=== PATIENT | female | born 1950 | race American Indian/Alaskan Native ===

== ENCOUNTER 2016-12-13 05:52 | Day surgery (SDC) | payer MEDICARE ==
[2016-12-13] MEDS ORDERED: DIPRIVAN 10 MG/ML IV ONE ×2 (07:17→07:18)
--- NOTE | 2016-12-13 07:26 | Anesthesia Day of Surgery ---
Anesthesia Day of Surgery - Day of Surgery Patient Examined: Yes Patient H&P Reviewed: Yes Patient is NPO: Yes
--- NOTE | 2016-12-13 07:26 | Anesthesia Consultation ---
Anesthesia Consult and Med Hx Date of service: 12/13/16 - Airway Anesthetic Teeth Evaluation: Dentures, Partials ROM Head & Neck: Adequate Mental/Hyoid Distance: Adequate Mallampati Class: Class II Intubation Access Assessment: Probably Good - Pulmonary Exam CTA: Yes - Cardiac Exam Cardiac Exam: RRR - Pre-Operative Health Status ASA Pre-Surgery Classification: ASA2, ASA3 Proposed Anesthetic Plan: MAC - Pulmonary Hx Smoking: Yes (1PPD 40YRS) Hx Respiratory Symptoms: (h/o bronchitis) - Cardiovascular System Hx Hypertension: Yes (6YRS) - Gastrointestinal Hx Gastroesophageal Reflux Disease: Yes - Endocrine Hx Liver Disease: Yes (h/o hepatitis?) - Other Systems Hx Cancer: No
[2016-12-13] MEDS ORDERED: WATER FOR IRRIG STERILE IR ONE (07:37)
[2016-12-13] MEDS ORDERED: NACL 0.9% 1000 ML 1,000 ML IV SCH (08:00)
--- NOTE | 2016-12-13 08:52 | Short Stay Summary ---
Short Stay Documentation - Allergies and Medications Current Medications: Allergies aspirin Adverse Reaction (Verified 10/11/15 14:24) IRRITATES STOMACH Home Medications Medication Instructions Recorded Confirmed Last Taken Type LORazepam [Ativan] 1 mg PO TID PRN 10/11/15 12/13/16 12/11/16 17:00 History Oxybutynin [Ditropan] 5 mg PO BID 10/11/15 12/13/16 12/11/16 17:00 History amLODIPine [Norvasc] 10 mg PO DAILY 10/11/15 12/13/16 12/11/16 17:00 History DULoxetine [Cymbalta] 30 mg PO BID 12/11/16 12/13/16 12/11/16 17:00 History Gabapentin [Neurontin] 300 mg PO Q8HR 12/11/16 12/13/16 12/11/16 History 2100 HYDROcodone/APAP 5-325 [[place] 1 each PO Q6HR PRN 12/11/16 12/13/16 12/12/16 17: 00 History 5/325] Sertraline [Zoloft] 25 mg PO QDAY 12/11/16 12/13/16 12/11/16 19:00 History Active Medications Sodium Chloride (Nacl 0.9% 1000 Ml) 1,000 mls @ 50 mls/hr IV DIRECT LIV Last Admin: 12/13/16 08:24 Dose: 50 mls/hr - Brief post op/procedure progress note Date of procedure: 12/13/16 Pre-op diagnosis: 1. Colon cancer screening 2. H/O colon polyps Post-op diagnosis: same (1. [place] valve polyp 2. Internal hemorrhoids) Procedure: Colonoscopy with biopsy Anesthesia: MAC Findings: as above Surgeon: INDIRA BATES Estimated blood loss: none Pathology: list (1. IL valve polyp) Specimen disposition: to lab Condition: stable - Disposition Condition at discharge: Stable Disposition: [id number] TO HOME OR SELFCARE Short Stay Discharge Plan Activity: no restrictions Weight Bearing Status: Full Weight Bearing Diet: regular, low salt Follow up with: BI MOCTEZUMA JR, MD [Primary Care Provider] - 7 Days
[2016-12-13 09:10] VITALS: BP 164/91
--- NOTE | 2016-12-13 09:45 | Post Anesthesia Evaluation ---
- Post Anesthesia Evaluation Patient Participated: Yes Airway Patent: Yes Stable Respiratory Function: Yes Nausea/Vomiting: No Temp > 96.8F: Yes Pain Manageable: Yes Adequeate Hydration: Yes Anesthesia Complications: No Block Receding Appropriately: Not Applicable Patient on Ventilator: No
== END 2016-12-13 05:53 | disposition home or self-care (01) ==
LOC: GIO 05:52
PROVIDERS: ATTEND Internal Medicine Gastroenterology
DX: Z09 Encounter for follow-up examination after completed treatment for conditions other than malignant neoplasm (principal); D12.0 Benign neoplasm of cecum; K64.8 Other hemorrhoids; F17.210 Nicotine dependence, cigarettes, uncomplicated; Z88.8 Allergy status to other drugs, medicaments and biological substances; Z79.899 Other long term (current) drug therapy; Z98.890 Other specified postprocedural states; Z86.19 Personal history of other infectious and parasitic diseases; Z87.19 Personal history of other diseases of the digestive system; Z80.1 Family history of malignant neoplasm of trachea, bronchus and lung
CPT/HCPCS: 45380; 88305; J2704; J7030